=== PATIENT | female | born 1975 | race Hispanic/Latino ===

== ENCOUNTER 2025-01-13 07:11 | Day surgery (SDC) | payer OTHER ==
[~2025-01-13] VITALS: Ht 162.6 cm; Wt 86.6 kg
[2025-01-13] VITALS (10 sets, daily range): BP systolic 122–151; BP diastolic 6–95; PULSE 59–71; RESP 15–18; TEMP 97.4–98.1
[2025-01-13] MEDS ORDERED: FERS325 PO (07:52)
[2025-01-13] MEDS ORDERED: TAMO20TA4 PO (07:52)
[2025-01-13] MEDS ORDERED: METR-172 PO (07:52)
[2025-01-13] MEDS ORDERED: CHOL500050 PO (07:52)
[2025-01-13] MEDS ORDERED: DULO30CA52 PO (07:52)
[2025-01-13] MEDS ORDERED: OMEP40CA21 PO (07:52)
[2025-01-13] MEDS ORDERED: IBUP-2071 PO (07:52)
[2025-01-13] MEDS ORDERED: MOTEGRITY PO (07:52)
[2025-01-13] MEDS ORDERED: PHEN-308 PO (07:52)
[2025-01-13] MEDS: 0.9%NACL 1000ML 1,000 ML IV ONE (07:58)
[2025-01-13] MEDS ORDERED: proPOFol 10 MG/ML 20ML VIAL IV ONE (08:23)
[2025-01-13] MEDS ORDERED: LIDOCAINE PF 100MG/5ML (2%) SYRINGE 5ML ONE (08:23)
== END 2025-01-13 09:40 | disposition home or self-care (01) ==
LOC: DAH 07:11
PROVIDERS: ATTEND Surgery
DX: R10.13 Epigastric pain (principal); K31.89 Other diseases of stomach and duodenum; R13.10 Dysphagia, unspecified; E78.5 Hyperlipidemia, unspecified; K31.84 Gastroparesis; K29.00 Acute gastritis without bleeding; K82.8 Other specified diseases of gallbladder; K22.89 Other specified disease of esophagus; M19.90 Unspecified osteoarthritis, unspecified site; K21.9 Gastro-esophageal reflux disease without esophagitis; E66.9 Obesity, unspecified; Z85.3 Personal history of malignant neoplasm of breast; Z68.32 Body mass index [BMI] 32.0-32.9, adult; Z79.899 Other long term (current) drug therapy
CPT/HCPCS: 84703; 36415; 43239; J7030 ×2; J2003; J2704; A4620; A4215; A4223; A7002; A4222; A4221; A4663; A4606; J3490